=== PATIENT | female | born 1960 | race Caucasian/White ===

== ENCOUNTER 2022-12-05 14:18 | Emergency (ER) | payer OTHER, SELFPAY ==
[2022-12-05 14:28] VITALS: BP 151/92; PULSE 77; RESP 16; TEMP 36.9; O2SAT 100
--- NOTE | 2022-12-05 15:24 | ED.SKABFB ---
HPI - Skin/Abscess/Foreign Bdy General Chief complaint: Skin/Abscess/Foreign Body Stated complaint: Fall Injury/Laceration to Chin Time Seen by Provider: 12/05/22 14:35 Source: patient, RN notes reviewed and old records reviewed Mode of arrival: ambulatory Limitations: no limitations History of Present Illness HPI narrative: 62 year old female who presents to [facility] care with complaints of experiencing fall at work today in office and hit her chin on the desk experiencing laceration to the underneath area of her right chin. Patient has some abrasions noted also along underneath of her right jaw with bruising present. patient denies any dizziness prior to fall or any LOC at time of incident. Patient is not up to date on her tetanus. MD complaint: laceration Onset (ago): hour(s) (occurred within past hour prior to arrival) Tetanus up to date: no Severity scale (1-10): 1 Quality: other (stinging) Treatments prior to arrival: other (cleansed with antibacterial soap) Related Data Home Medications Medication Instructions Recorded Confirmed No Home Medications 12/05/22 12/05/22 Allergies Allergy/AdvReac Type Severity Reaction Status Date / Time No Known Allergies Allergy Verified 12/05/22 14:42 Review of Systems Review of Systems: CONSTITUTIONAL: Denies fever, chills, or sweats. CARDIOVASCULAR: Denies chest pain, palpitations, or edema. RESPIRATORY: Denies cough or dyspnea. SKIN: Reports laceration to the underneath region of her right chin MUSCULOSKELETAL: Denies musculoskeletal pain NEUROLOGIC: Denies numbness, or weakness. denies any dizziness prior to fall or any LOC at time of fall. All systems reviewed & are unremarkable except as noted in HPI and below PMFSH Social History Social History (Updated 12/08/22 @ 08:27 by Ana Paula Whyte NP) Smoking status: Never smoker Gender identity (if verbalized by the patient): Female Comments At time of signature, agree with nursing past medical, surgical, social and family history. There is no relevant family history pertinent to the presenting complaint Exam Narrative: GENERAL: Well-appearing, well-nourished, and in no acute distress. HEAD: Normocephalic, atraumatic. NECK: Supple.no lymphadenopathy 1cm laceration to the underneath region of right chin with abrasions along underneath right jawline with some bruising. CHEST: Clear to auscultation. No respiratory distress. SAO2 100% on room air HEART: Regular rate and rhythm. No murmur heard. Normal peripheral pulses. EXTREMITIES: Normal range of motion. No edema. SKIN: Warm, dry, no rash. laceration to underneath of right chin see procedure note NEURO: No focal deficits. Alert and oriented x3. Course Course Level of Care: Express Care Visit Vital Signs Vital signs: Vital Signs Temperature 36.9 C 12/05/22 14:28 Pulse Rate 77 12/05/22 14:28 Respiratory Rate 16 12/05/22 14:28 Blood Pressure 151/92 H 12/05/22 14:28 Pulse Oximetry 100 12/05/22 14:28 Oxygen Delivery Room Air 12/05/22 14:28 Temperature 36.9 C 12/05/22 14:28 Pulse Rate 77 12/05/22 14:28 Respiratory Rate 16 12/05/22 14:28 Blood Pressure 151/92 H 12/05/22 14:28 Pulse Oximetry 100 12/05/22 14:28 Oxygen Delivery Room Air 12/05/22 14:28 Procedures Laceration underneath right chin: Date: 12/05/22 Time: 14:45 Site: face (underneath right chin) Side (If applicable): right Size (cm): 1 Description: linear Depth: simple, single layer Local Anesthetic: lidocaine 1% Amount of anesthesia used (mL): 2 Pre-repair: irrigated extensively and other (Primaderm wound cleanser) ====== Skin Level ====== Skin layer closed with: nylon Size (cm): 5-0 Number of sutures: 4 Technique: simple, interrupted ====== Subcutaneous Layer ====== ====== Muscle Layer ====== ====== Tendon Layer ====== Dressing: Wound
[2022-12-05] MEDS: TETANUS,DIPHTHERIA,AC PERTUSSIS ADULT (0.5 ML) BOOSTRIX IM (15:28)
== END 2022-12-05 15:35 | disposition home or self-care (01) ==
PROVIDERS: Emergency Provider Registered Nurse; PCP Nurse Practitioner Family
DX: S01.81XA Laceration without foreign body of other part of head, initial encounter (principal); W19.XXXA Unspecified fall, initial encounter; Y99.0 Civilian activity done for income or pay; Z23 Encounter for immunization
CPT/HCPCS: 12011; 90471; 90715; 99212; G0463

== ENCOUNTER 2022-12-13 15:06 | Emergency (ER) | payer SELFPAY ==
[2022-12-13 15:12] VITALS: BP 124/72; PULSE 60; RESP 18; TEMP 37.2; O2SAT 100
--- NOTE | 2022-12-13 15:32 | ED.WOUNDLAC ---
HPI - Wound/Laceration General Chief Complaint: Wound/Laceration Stated Complaint: stich removal Source: patient and RN notes reviewed History of Present Illness HPI narrative: 62-year-old female presents to urgent care for suture removal. Patient had 4 sutures placed approximately 1 week ago to her right chin. Patient denies any increased redness, pain, or drainage from the area. Denies any fevers or chills. Some parts of this dictation were generated by voice recognition software and may contain typographical and/or grammatical inaccuracies. Related Data Home Medications Medication Instructions Recorded Confirmed No Home Medications 12/05/22 12/13/22 Allergies Allergy/AdvReac Type Severity Reaction Status Date / Time No Known Allergies Allergy Verified 12/13/22 15:22 Review of Systems Review of Systems: CONSTITUTIONAL: Denies fever, chills, or sweats. EYES: Denies visual changes, redness, or discharge. ENT: Denies otalgia and sore throat CARDIOVASCULAR: Denies chest pain, palpitations, or edema. RESPIRATORY: Denies cough or dyspnea. GASTROINTESTINAL: Denies abdominal pain, nausea, vomiting, or diarrhea. GENITOURINARY: Denies dysuria or hematuria. SKIN: Denies rash or itching. MUSCULOSKELETAL: Denies back pain, joint pain, or myalgia. [facility] Social History Social History (Updated 12/08/22 @ 08:27 by Ana Paula Whyte NP) Smoking status: Never smoker Gender identity (if verbalized by the patient): Female Comments At the time of my signature, I reviewed and agree with the nursing past medical, surgical, social, and family history. There is no relevant family history pertinent to the patient complaint. Exam Narrative: GENERAL: This is a well-nourished, well-developed patient, in no apparent distress. HEAD: normocephalic, atraumatic. EYES: PERRL. Sclera clear/white. Vision is grossly intact. EARS: External ears normal, auditory canals clear and without drainage, TMs normal without perforation. Hearing grossly intact. NOSE: External nose normal with no obvious nasal discharge, nares without redness, no rhinorrhea. THROAT: Mucous membranes moist, posterior pharynx clear. NECK: Neck supple, non-tender without lymphadenopathy, masses or thyromegaly. CARDIOVASCULAR: Regular rate and rhythm without murmurs, gallops, or rubs. RESPIRATORY: Clear to auscultation. Breath sounds equal bilaterally. No wheezes, rales, or rhonchi. GASTROINTESTINAL: Abdomen soft, non-tender, nondistended. Bowel sounds are active. No hepato-splenomegaly, or palpable masses. No guarding. SKIN: warm, intact with no suspicious lesions or rash, good texture and turgor. 4 clean sutures noted. Wound is well approximated after suture removal. NO signs of infection noted. NEURO: awake, alert, and oriented to person, place and time. There were no obvious focal neurologic abnormalities. EXTREMITIES: No clubbing, cyanosis, or edema. No joint tenderness, effusion, or edema noted. No calf tenderness. Negative Homans sign bilaterally. BACK: Nontender without deformity or crepitance. No flank tenderness. Course Course Level of Care: Express Care Visit Vital Signs Vital signs: Vital Signs Temperature 99 F 12/13/22 15:12 Pulse Rate 60 12/13/22 15:12 Respiratory Rate 18 12/13/22 15:12 Blood Pressure 124/72 12/13/22 15:12 Pulse Oximetry 100 12/13/22 15:12 Oxygen Delivery Room Air 12/13/22 15:12 Temperature 99 F 12/13/22 15:12 Pulse Rate 60 12/13/22 15:12 Respiratory Rate 18 12/13/22 15:12 Blood Pressure 124/72 12/13/22 15:12 Pulse Oximetry 100 12/13/22 15:12 Oxygen Delivery Room Air 12/13/22 15:12 Reviewed Procedures Other Procedure Procedure 1: Other Procedure: Suture removal; 4 sutures were removed using tweezers and scissors. No complications or bleeding noted. No signs of infection noted. Wound edges closed and healing. Pt tolerated well. MDM - Wound/Laceration MDM Narrative Medi
== END 2022-12-13 15:35 | disposition home or self-care (01) ==
PROVIDERS: Emergency Provider Nurse Practitioner Family; PCP Nurse Practitioner Family
DX: S01.81XD Laceration without foreign body of other part of head, subsequent encounter (principal); X58.XXXD Exposure to other specified factors, subsequent encounter
CPT/HCPCS: 99211; G0463